=== PATIENT | male | born 1995 | race Caucasian/White ===

== ENCOUNTER 2018-02-23 16:02 | Outpatient (CLI) | payer BC ==
--- NOTE | 2018-02-24 12:38 | EKG ---
Test Reason : Blood Pressure : / mmHG Vent. Rate : 083 BPM Atrial Rate : 083 BPM P-R Int : 144 ms QRS Dur : 086 ms QT Int : 346 ms P-R-T Axes : 081 079 062 degrees QTc Int : 406 ms Normal sinus rhythm Early repolarization No previous ECGs available Confirmed by DR. Benton CARIAS ([id number]) on 02/24/2018 12:38:36 PM Referred By: JASPREET Confirmed By:DR. Benton CARIAS
== END 2018-02-23 16:03 | disposition home or self-care (01) ==
LOC: LABBT 16:02
PROVIDERS: ATTEND Surgery
DX: Z01.818 Encounter for other preprocedural examination (principal); A63.0 Anogenital (venereal) warts
CPT/HCPCS: 93005; 93010

== ENCOUNTER 2018-03-03 10:31 | Day surgery (SDC) | payer BC ==
[2018-02-23 16:16] VITALS: BMI 20.4
[2018-03-03] MEDS ORDERED: Midazolam HCl 2 mg/2 ml Vial ONE ×2 (13:28→14:05)
[2018-03-03] MEDS ORDERED: Fentanyl 100 MCG/2 ML VIAL ONE (14:05)
[2018-03-03] MEDS ORDERED: Lidocaine 2% Jelly 5 ML TUBE ONE (14:09)
[2018-03-03] MEDS ORDERED: Bupivacaine/Epinephrine 0.25% 30 ML VIAL ONE (14:09)
[2018-03-03] MEDS ORDERED: Meperidine HCl/PF 25 MG/ML VIAL ONE (15:30)
[2018-03-03] MEDS ORDERED: HYDROcodone/Acetaminophen 5/325 mg Tablet ONE (16:14)
[2018-03-03] MEDS ORDERED: Metoclopramide HCl 10 MG/2 ML VIAL ONE (17:29)
[2018-03-03] MEDS ORDERED: Lidocaine 1% PF 5 ML VIAL ONE (17:29)
[2018-03-03] MEDS ORDERED: Ondansetron PF 4 MG/2 ML Vial ONE (17:29)
[2018-03-03] MEDS ORDERED: PROPOFOL 200 MG/20 ML VIAL ONE (17:29)
[2018-03-03] MEDS ORDERED: Dexamethasone 20 MG/5 ML VIAL ONE (17:29)
--- NOTE | 2018-03-04 15:38 | OP ---
DATE OF PROCEDURE: 03/03/2018 PREOPERATIVE DIAGNOSIS: Anal condyloma. POSTOPERATIVE DIAGNOSIS: Anal condyloma. PROCEDURE PERFORMED: Fulguration of anal condyloma. ANESTHESIA: General. ESTIMATED BLOOD LOSS: Minimal. COMPLICATION: None. SPECIMEN: None. TECHNIQUE: The patient was taken to the operating room and laid supine on the operating room table. After general anesthetic was obtained, he was placed in a lithotomy position. His perianal areas were prepped and draped in a sterile fashion. The patient had circumferential condyloma, most of which was on the perianal skin. He had very little on the anal canal. He had a few on his scrotum. Cautery was used to fulgurate the condyloma and remove it. This left some open wounds to the perianal skin. A few condyloma on the scrotum were burned as well. There were few in the anal canal, but no significant intraluminal condyloma present. Meticulous hemostasis was obtained. Local anesthetic was applied. The patient was then returned to Recovery in stable condition. All instrument counts, needle counts, and lap counts were correct. Job ID: [id number]
--- NOTE | 2018-03-29 05:31 | PQF ---
[facility] POST DISCHARGE CLINICAL DOCUMENTATION IMPROVEMENT CLARIFICATION FORM l Todays Date: 03/29/18 l Patients Name JACQUE MA l l Admit Date 03/03/18 l Disch Date 03/03/18 Canvas Repairer Name Addison Wadsworth Email: [email or web address]: [phone] To be completed by Canvas Repairer: Present Clinical Indicators - Signs / Symptoms Results and Location in Medical Record [ ] Documentation of: [ ] [ ] Documentation of: [ ] [ ] Documentation of: [ ] [ ] Documentation of: [ ] [ ] Risks [ ] [ ] [ ] Treatment [ ] SCROTAL CONDYLOMA QUERY FOR NUMBER OF CAUTERIZED SCROTAL CONDYLOMA [ ] [ ] To be completed by Physician: CALDERON ALANIS The documentation in this patients record requires clarification to ensure coding compliance and accuracy. Check the appropriate box and include in your discharge summary. [ ] [ ] [ ] [ ] Please check this box if this does not apply to this patient [ ] Unable to determine [ ] Other diagnosis: Review the following information and exercise your independent professional judgment in responding to the clarification. Based upon the clinical findings, risk factors, and treatment, please clarify if you are treating one of the above probable or suspected diagnoses. Physician Signature: Date Time MTDD
== END 2018-03-03 17:06 | disposition home or self-care (01) ==
LOC: SDC 10:31
PROVIDERS: ATTEND Surgery
PROC: [UNRECOGNIZED PROCEDURE] (principal; 2018-03-03)
PROC: 0H59XZD Destruction of Perineum Skin, Multiple, External Approach (ICD-10-PCS; principal; 2018-03-03)
DX: A63.0 Anogenital (venereal) warts (principal); Q21.0 Ventricular septal defect; F41.9 Anxiety disorder, unspecified; F32.9 Major depressive disorder, single episode, unspecified; I12.9 Hypertensive chronic kidney disease with stage 1 through stage 4 chronic kidney disease, or unspecified chronic kidney disease; N18.9 Chronic kidney disease, unspecified; Z79.52 Long term (current) use of systemic steroids; Z79.899 Other long term (current) drug therapy
CPT/HCPCS: 96374; J1100; J2001; J2175; J2250; J2405; J2704; J2765; J3010

== ENCOUNTER 2019-05-08 15:44 | Emergency (ER) | payer BC ==
--- NOTE | 2019-05-08 16:45 | RAD ---
Radiograph pelvis one view: HISTORY: 23-year-old male status post acute traumatic pelvic injury and pain FINDINGS: Pelvic ring appears to be intact with no evidence of fracture. No dislocation. IMPRESSION: Negative
--- NOTE | 2019-05-08 16:47 | RAD ---
Radiograph sacrum and coccyx 3 views: HISTORY: 23-year-old male status post acute traumatic sacrococcygeal pain due to fall. FINDINGS: No displaced fracture identified. IMPRESSION: 1. No fracture identified. 2. If symptoms do not improve in the next several days, the most sensitive modality for the detection of occult sacrococcygeal fracture would be noncontrast MRI of sacrum and coccyx.
== END 2019-05-08 17:30 | disposition home or self-care (01) ==
LOC: ERS 15:44
DX: M53.3 Sacrococcygeal disorders, not elsewhere classified (principal); F41.9 Anxiety disorder, unspecified; W20.8XXA Other cause of strike by thrown, projected or falling object, initial encounter
CPT/HCPCS: 72170; 72220

== ENCOUNTER 2019-12-23 09:01 | Outpatient (CLI) | payer BC ==
--- NOTE | 2019-12-23 09:52 | MRI ---
MRI BRAIN NONCONTRAST: DATE: 12/23/2019 HISTORY: 24-year-old male with "G 43.00. Acute headache syndromes in adult" FINDINGS: The ventricles are normal in size and configuration. There is no major intra-axial signal abnormality , restricted diffusion, midline shift or any other mass effect, recent intra-axial hemorrhage, or extra-axial fluid collection. Moderate polypoid mucosal thickening causing approximately 50% opacific ation of left maxillary sinus. Mucosal thickening of left anterior ethmoid air cells. IMPRESSION: 1. Normal brain 2. Left-sided mucosal paranasal sinus disease.
== END 2019-12-23 09:02 | disposition home or self-care (01) ==
LOC: BICMRI 09:01
PROVIDERS: ATTEND Physician Assistant
DX: G43.C0 Periodic headache syndromes in child or adult, not intractable (principal)
CPT/HCPCS: 70551